=== PATIENT | male | born 1990 | race African-American/Black ===

== ENCOUNTER 2020-11-24 20:00 | Emergency (ER) | payer MEDICAID, OTHER ==
[~2020-11-24] VITALS: Ht 170.2 cm; Wt 81.6 kg
--- NOTE | 2020-11-24 20:31 | NUR ---
SB FROM A [employer] [facility] [employer] [facility]ING. TO ER BED 13. SLEEPING, ARROUSABLE WITH PAIN STIMULI. PER EMS, PT WAS LYING ON THE GROUND AND A BYSTANDER CALLED 911. UPON RECEIVING PT, PT WALKED FROM TRIAGE TO BED AND ABLE TO OBTAIN PT'S NAME. HOWEVER, STILL LIMITED ANSWER. PROVIDER WAS AT THE BEDSIDE. BRISA RECEIVED
[2020-11-24] MEDS ORDERED: diphenhydrAMINE HCL 50 MG/ML VIAL ONE (21:18)
[2020-11-24] MEDS ORDERED: LORAZEPAM INJ 2 MG/ML VIAL ONE (21:19)
[2020-11-24] MEDS ORDERED: HALOPERIDOL LACTATE INJ 5 MG/ML VIAL ONE (21:19)
[2020-11-24 21:25] LABS: EOSINOPHILS % (AUTO) 0.1 % (0.0-6.0); HEMATOCRIT 42 % (39-51); HEMOGLOBIN 13.4 g/dL (13.5-17.5); LYMPHOCYTES # (AUTO) 0.3 K/uL (0.8-4.8); LYMPHOCYTES % (AUTO) 4.9 % (20.0-44.0); MEAN CORPUSCULAR HGB CONC 32 g/dl (31.0-36.0); MEAN CORPUSCULAR VOLUME 90 fL (80-96); MONOCYTES # (AUTO) 0.3 K/uL (0.1-1.30); PLATELET COUNT (AUTO) 166 K/uL (150-450); RED BLOOD CELL COUNT(AUTO) 4.63 MIL/uL (4.5-6.0); WHITE BLOOD COUNT (AUTO) 5.6 K/uL (4.3-11.0)
[2020-11-24] MEDS ORDERED: HALOPERIDOL LACTATE INJ 5 MG/ML VIAL IM ONE (21:30)
[2020-11-24] MEDS ORDERED: LORAZEPAM INJ 2 MG/ML VIAL IM ONE (21:30)
[2020-11-24] MEDS ORDERED: diphenhydrAMINE HCL 50 MG/ML VIAL IM ONE (21:30)
[2020-11-24 21:35] LABS: CALCIUM, SERUM 8.3 mg/dL (8.5-10.1); CARBON DIOXIDE 25 mmol/L (21-32); CHLORIDE 104 mmol/L (98-107); CREATININE 1.2 mg/dL (0.6-1.3); GLUCOSE 98 mg/dL (74-106); POTASSIUM 3.7 mmol/L (3.5-5.1); SODIUM SERUM 138 mmol/L (136-145); UREA NITROGEN, BLOOD 16 mg/dL (7-18)
[2020-11-24 21:42] LABS: ACETAMINOPHEN 0 ug/ml (10-30); ALANINE AMINOTRANSFERASE 28 U/L (12-78); ALBUMIN 3.8 g/dL (3.4-5.0); ALKALINE PHOSPHATASE 62 U/L (46-116); ASPARTATE AMINOTRANSFERASE 19 U/L (15-37); BILIRUBIN,DIRECT 0.2 mg/dL (0.0-0.2); BILIRUBIN,TOTAL 0.7 mg/dL (0.2-1.0); TOTAL PROTEIN, SERUM 6.6 g/dL (6.4-8.2)
[2020-11-24 21:44] LABS: ALCOHOL, BLOOD < 10 mg/dL (0-0)
--- NOTE | 2020-11-24 22:47 | NUR ---
taken to ct
--- NOTE | 2020-11-24 22:47 | NUR ---
PT LEFT FOR CT.
[2020-11-24 23:34] LABS: BILIRUBIN,URINE SMALL (NEGATIVE); COLOR,URINE YELLOW (YELLOW); LEUKOCYTE ESTERASE ,URINE Small (NEGATIVE); NITRITE, URINE Negative (NEGATIVE); PH,URINE 6.5 (5.0-8.0); PROTEIN,URINE 30 mg/dl (NEGATIVE); UGLUCOSE Negative (NEGATIVE); UROBILINOGEN,URINE 0.2 EU/dL (0.2)
[2020-11-24 23:45] LABS: BACTERIA,URINE Rare /HPF (None Seen); SQUAMOUS EPITHELIAL CELL,UR Few /HPF (None Seen); URINE AMORPHOUS PHOSPHATES Few /HPF (None Seen)
--- NOTE | 2020-11-24 23:50 | NUR ---
pt attached to monitor, vss
--- NOTE | 2020-11-25 00:15 | NUR ---
Patient is resting comfortably in bed with eyes closed. Easily aroused. VSS
[2020-11-25] MEDS ORDERED: CEPHALEXIN MONOHYDRATE 500 MG CAPSULE PO ONE ×2 (01:00→13:06)
[2020-11-25] MEDS ORDERED: CEPH500T PO (01:05)
--- NOTE | 2020-11-25 01:25 | NUR ---
PT LEFT ON GURMAGALI WITH 2 EMT AT BEDSIDE
--- NOTE | 2020-11-25 02:22 | NUR ---
pt attached to monitor and pox. vss
--- NOTE | 2020-11-25 04:30 | NUR ---
Patient is resting comfortably in bed with eyes closed. Easily aroused. VSS
--- NOTE | 2020-11-25 07:42 | NUR ---
The patient in the restroom.
--- NOTE | 2020-11-25 07:57 | NUR ---
THE PATIENT SLEEPING IN BED. RESPONSIVE TO VERBAL STIMULI. RESPIRATION REGULAR AND UNLABORED. REFUSED VITAL SIGNS CHECK AT THIS TIME. WILL CONTINUE TO MONITOR THE PATIENT.
--- NOTE | 2020-11-25 08:55 | NUR ---
The patient sleeping. In no apparent distress. Still unable to given ordered keflex due to patient sleeping.
--- NOTE | 2020-11-25 12:37 | NUR ---
THE PATIENT AWAKE, ALERT AND ORIENTED X3. DENIES PAIN. IN ROOM AIR AND DENIES SOB. RESPIRATION REGULAR AND UNLABORED. THE PATIENT IS SERVED LUNCH. TOLERATED SERVED FOOD WELL. WILL CONTINUE TO MONITOR THE PATIENT.
--- NOTE | 2020-11-25 13:30 | NUR ---
SS consult: SS consult requested for substance use and homelessness. Pt is a 30-year-old, male. SW met with pt at his bedside in the emergency department. Pt was alert and oriented x3. Pt presented guarded with an anxious affect. Pt covered himself in his blanket and was reluctant to speak to SW. Pt appeared disheveled. Pt was uncooperative and had to be redirected multiple times by this SW and RN Jennyfer. Per chart, pt was brought in by ambulance on 11/24/20, after he was found lying on the ground by a bystander. Pt stated that he is currently homeless and has been living on the street. Pt stated that he has no access to social support at this time. Pt stated, "I can't get in touch with them." Pt reported current substance use which includes methamphetamine and cannabis. Pt did not provide SW with further information regarding frequency of use. Pt refused to respond when asked if pt has a history of mental illness. SW assessed pt's current suicidal or homicidal ideation. Pt stated that he is currently feeling suicidal without a plan. Pt stated, "I've been trying to kill myself and have felt suicidal a lot before." SW offered the pt substance use, mental health and homeless resources. Pt declined the resources and refused to sign homeless waiver. SW filed homeless waiver in the pt's chart and indicated pt's refusal. Pt requested voluntary psychiatric admission. SW will fax clinicals to [facility], for review. PLAN: Pt requested voluntary psychiatric admission. SW will fax clinicals to [facility], for reivew. No further SS intervention at this time, however, SS will remain available as needed. RESOURCES OFFERED: Year-round shelters: [facility] [place] [address] [place] [address] ; [facility] [place] [address] [place] [address]; [facility] [facility] [address] SPA 4 | [facility] [place] Provider: [facility] Address: [address], [facility] # of Beds: 48 Population Served: [facility] Provider: [facility] Serve Address: [address] [place] [address], [address] # of Beds: 73 Population Served: [place] SPA 6 | [facility] Provider: [facility] Address: [address] [facility], [address] # of Beds: 63 Population Served: [facility] SPA 3 | [facility] Provider: [facility] [place] Address: [address] [facility], [address] # of Beds: 75 Population Served: [place] SPA 8 | [facility] Provider: [facility] [place] Address: [address] [facility], [address] # of Beds: 80 Population Served: [facility] SPA 1 | [facility] Provider: [facility] [place] Address: [id number] [place] [address], [address] # of Beds: 85 Population Served: [place] [facility] 2 | [facility] Provider: [facility] Address: Confidential (please call for location) # of Beds: 52 Population Served: [facility] 4 | [facility] Provider: [facility] Address: [address] [facility], [address] # of Beds: 49 Population Served: [facility] Provider: [facility] To Serve Address: [address] [place] [address], [address] # of Beds: 27 Population Served: [facility] Hygiene: [facility]: [address] ; [facility] [address] [facility] ; [facility] [address] . Food Resources: [place] [facility] at [facility]- [address] [place]; Meet Each Need with [facility] ([facility]) [address] [facility]; [facility] [address] [facility]; [facility] [address] [facility]. Mental Health resources provided: [facility] [address] [place], [place] [address] ; [facility] [place] [address] [facility] [address], [place], [place] [phone] ; [facility] [address] [place], [place] [phone] ; [facility] [address] [place], [place] [phone] Healthcare Clinics: [facility] [address] [facility], [address] [place]. [place] ; [facility] [address] [facility] [address] [place] [address]; [facility] [address] [place] [address] [phone]) [phone] Counseling--Outpatient [facility] [address] [facility], [place] [address] (Specializes in in-depth psychotherapy for emotional distress: anxiety, depression, interpersonal conflicts, life transitions, childhood abuse) PSYCHIATRIC OUTPATIENT SERVICES [facility] Partial Hospitalization and Intensive Outpatient Program (Managed Care and Aline Only) [address] [facility]. [facility] [phone] [facility] Partial Hospitalization and Outpatient Program [address] [facility]. [address] [place], [place] [phone] [facility] Partial Hospitalization and Outpatient Program [address] [facility]. [place], [place] [phone] [facility] [place] [facility] [address] [facility]. [address] [place], [place] [address] [facility] Partial Hospitalization and Outpatient Program [address] [place], [place] [phone] Substance use resources provided included: [facility] Substance Abuse Self-Helpline (SAS) ; [facility] [address] [facility] [phone] ; [facility] [address] [facility] [address] ; [facility] [address] [phone] ; [facility] [address] [facility] [address] ; [facility] [address] [facility] [phone] ; [facility]; [facility] [place]; [facility] [place]; Alcoholics Anonymous -[facility]
--- NOTE | 2020-11-25 13:35 | NUR ---
SS note: Per pt requested for voluntary psychiatric admission, SHANNA faxed clinicals to [facility], , for review.
--- NOTE | 2020-11-25 15:16 | NUR ---
COVID SWAB DONE AND SENT TO THE LAB.
--- NOTE | 2020-11-25 19:05 | NUR ---
Patient is resting comfortably in bed with eyes closed. Easily aroused. VSS
--- NOTE | 2020-11-25 23:15 | NUR ---
PT ATTACHED TO MONITOR AND POX. EASILY AROUSABLE
--- NOTE | 2020-11-26 02:00 | NUR ---
PT ASKING FOR URINAL, NEEDS MET
--- NOTE | 2020-11-26 05:00 | NUR ---
REPatient is resting comfortably in bed with eyes closed. Easily aroused. VSS
--- NOTE | 2020-11-26 07:35 | NUR ---
THE PATIENT SLEEPING IN BED. RESPONSIVE TO VERBAL STIMULI. RESPIRATION REGULAR AND UNLABORED. REFUSED VITAL SIGNS CHECK AT THIS TIME. WILL CONTINUE TO MONITOR THE PATIENT.
[2020-11-26] MEDS ORDERED: diphenhydrAMINE HCL 50 MG/ML VIAL IM ONE (21:30)
[2020-11-26] MEDS ORDERED: OLANZAPINE 10 MG VIAL IM ONE ×2 (21:30→21:31)
[2020-11-26] MEDS ORDERED: HALOPERIDOL LACTATE INJ 5 MG/ML VIAL IM ONE (21:30)
[2020-11-26] MEDS ORDERED: HALOPERIDOL LACTATE INJ 5 MG/ML VIAL ONE (21:35)
[2020-11-26] MEDS ORDERED: diphenhydrAMINE HCL 50 MG/ML VIAL ONE (21:35)
--- NOTE | 2020-11-26 21:38 | NUR ---
pt medicated as ordered.
--- NOTE | 2020-11-27 00:30 | NUR ---
PATIENT RESTING IN BED, EASY TO AROUSE. PATIENT VSS. PATIENT CONNECETED TO CARDIAC AND POX MONITOR. WILL CONTINUE TO MONITOR. PATIENT IN NO ACUTE DISTRESS.
--- NOTE | 2020-11-27 03:43 | NUR ---
FACESHEET AND CLINICALS REFAXED TO [facility].
--- NOTE | 2020-11-27 05:00 | NUR ---
PATIENT AMBULATED TO RESTROOM AND RETURNED TO BED. PATIENT VSS. PATIENT PROVIDED WITH FLUIDS PO, TOLERATING WELL. WILL CONTINUE TO MONITOR.
--- NOTE | 2020-11-27 08:06 | NUR ---
RECEIVED A CALL FROM ART AT [facility]. PATIENT HAS BEEN ACCEPTED TO [facility] UNDER THE CARE OF DR. LEIGH, PLEASE GIVE REPORT TO UNIT 2 AT [phone].
--- NOTE | 2020-11-27 08:09 | NUR ---
CALLED [facility] ETA [phone].
--- NOTE | 2020-11-27 08:16 | NUR ---
REPORT GIVEN TO NURSE THONG FROM [facility]
--- NOTE | 2020-11-27 08:21 | NUR ---
THE PATIENT IS SLEEPING IN BED. RESPONSIVE TO VERBAL STIMULI. RESPIRATION REGULAR AND UNLABORED. WILL CONTINUE TO MONITOR THE PATIENT.
--- NOTE | 2020-11-27 09:59 | NUR ---
THE PATIENT IN STABLE CONDITON AND GETTING TRANSFERED TO [facility] VIA [facility]ED TRANSPO
[2020-11-27 10:00] VITALS: BP 125/76
== END 2020-11-27 10:00 ==
LOC: EDBD 20:02 → ER 20:02
DX: F29 Unspecified psychosis not due to a substance or known physiological condition (principal); N39.0 Urinary tract infection, site not specified; F19.10 Other psychoactive substance abuse, uncomplicated; F15.10 Other stimulant abuse, uncomplicated; M48.02 Spinal stenosis, cervical region; Z20.822 Contact with and (suspected) exposure to COVID-19
CPT/HCPCS: 36415; 70450; 71045; 72125; 80048; 80076; 80143; 80307; 80320; 81001; 85025; 87086; 87426; 93005; 96372 ×4; 99285; C9803; J1200 ×2; J1630 ×2; J2060; J3490; G0480